=== PATIENT | male | born 1980 | race Caucasian/White ===

== ENCOUNTER 2017-11-01 14:11 | Emergency (ER) | payer OTHER ==
[~2017-11-01] VITALS: Ht 188 cm; Wt 104.3 kg
[2017-11-01 14:29] VITALS: BP 144/84
[2017-11-01] MEDS ORDERED: Tetracaine 0.5% Opth 4ml Soln LEFT EYE ONE (14:45)
[2017-11-01] MEDS ORDERED: Fluorescein Strips LEFT EYE ONE (14:45)
[2017-11-01] MEDS ORDERED: HYDROcodone/Acetamin 7.5/325 tab ORAL ONE (14:45)
[2017-11-01] MEDS ORDERED: Morgan Lens TOPIC ONE (15:30)
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
[2017-11-01] MEDS ORDERED: BACITRACIN-POL3.5 GM OP (15:56)
[2017-11-01] MEDS ORDERED: BACITRACIN-P28.35 GM TP (15:56)
[2017-11-01] MEDS ORDERED: NORCO 5-325 TA1 EAC1 ORAL (15:56)
[2017-11-01] MEDS ORDERED: IBUPROFEN600 MG ORAL (15:56)
[2017-11-01 16:14] VITALS: BP 140/80
== END 2017-11-01 16:16 | disposition home or self-care (01) ==
LOC: EMR 14:37
DX: T20.24XA Burn of second degree of nose (septum), initial encounter (principal); T26.42XA Burn of left eye and adnexa, part unspecified, initial encounter; T31.0 Burns involving less than 10% of body surface; X19.XXXA Contact with other heat and hot substances, initial encounter; Y92.511 Restaurant or cafe as the place of occurrence of the external cause; Y99.0 Civilian activity done for income or pay
CPT/HCPCS: 99284